=== PATIENT | female | born 1985 | race Hispanic/Latino ===

== ENCOUNTER 2017-10-10 16:33 | Emergency (ER) | payer MEDICARE ==
[2017-10-10 17:34] LABS: CREATININE 0.7 mg/dL (0.5-1.5); POTASSIUM 3.4 mmol/L (3.5-5.1)
[2017-10-10 17:38] LABS: ALBUMIN 3.5 g/dL (3.5-5.0); BILIRUBIN,TOTAL 0.5 mg/dL (0.2-1.0); TOTAL PROTEIN, SERUM 7.1 g/dL (6.0-8.3)
[2017-10-10 18:01] LABS: EOSINOPHILS % (AUTO) 4.6 % (0.0-8.0); HEMATOCRIT 42.5 % (36-48); LYMPHOCYTES % (AUTO) 39.6 % (21.0-51.0); MEAN CORPUSCULAR HGB CONC 34.1 g/dL (32.0-36.0); MEAN CORPUSCULAR VOLUME 90.9 fL (79-99); MONOCYTES % (AUTO) 11.6 % (3.0-13.0); NEUTROPHILS % (AUTO) 43.2 % (40.0-77.0); PLATELET COUNT (AUTO) 312 K/uL (130-400); RED BLOOD CELL COUNT(AUTO) 4.68 MIL/uL (4.00-5.50); RED CELL DISTRIBUTION WIDTH 12.9 % (11.0-15.5); WHITE BLOOD COUNT (AUTO) 10.1 K/uL (4.8-10.8)
== END 2017-10-10 18:39 | disposition home or self-care (01) ==
LOC: EDH 16:33
DX: F41.1 Generalized anxiety disorder (principal); F45.8 Other somatoform disorders; R00.2 Palpitations; Z91.041 Radiographic dye allergy status; Z91.040 Latex allergy status; Z88.8 Allergy status to other drugs, medicaments and biological substances
CPT/HCPCS: 36415; 71046; 80053; 85025; 93005

== ENCOUNTER → 2020-07-04 | Outpatient (CLI) | payer OTHER, MEDICARE | END | disposition home or self-care (01) | LOC: SHCH 13:29 | PROVIDERS: ATTEND Internal Medicine Cardiovascular Disease | DX: R07.9 Chest pain, unspecified (principal) | CPT/HCPCS: 93306 ==